=== PATIENT | female | born 1965 | race Caucasian/White ===

== ENCOUNTER 2021-12-07 15:09 | Day surgery (SDC) | payer OTHER ==
[2021-12-07] MEDS ORDERED: Sodium Chloride 0.9(Preservative Free) 10 ML IJ ONE (15:10)
[2021-12-07] MEDS ORDERED: XYLOCAINE-MPF 1% 5ML SDV IJ ONE (15:10)
[2021-12-07] MEDS ORDERED: Decadron 4 MG INJ IV ONE (15:10)
[2021-12-07] MEDS ORDERED: Lactated Ringers 1,000 ML IV ONE (16:33)
--- NOTE | 2021-12-08 07:44 | XRAY ---
Indication: Cervical LOLI. Intraoperative fluoroscopy provided for 26 seconds. 2 digital spot image submitted for interpretation demonstrates posterior needle tip projecting just posterior to cervical thoracic junction. Small amount of contrast injected for needle tip placement. Correlate with intraoperative findings/report.
--- NOTE | 2021-12-08 22:05 | XRAY ---
26 seconds of fluoroscopy was used in surgery for a cervical LOLI.
== END 2021-12-07 17:40 | disposition home or self-care (01) ==
LOC: SDC-PAIN 15:09
PROVIDERS: ATTEND Psychiatry & Neurology Pain Medicine
DX: M54.12 Radiculopathy, cervical region (principal); Z79.899 Other long term (current) drug therapy
CPT/HCPCS: 62321; 72040; 77003; 81025; 82947; J1100; Q9966

== ENCOUNTER 2022-11-15 15:44 | Day surgery (SDC) | payer OTHER ==
[2022-11-15] MEDS ORDERED: Sodium Chloride 0.9(Preservative Free) 10 ML IJ ONE (15:45)
[2022-11-15] MEDS ORDERED: Decadron 4 MG INJ IV ONE (15:45)
[2022-11-15] MEDS ORDERED: LIDOCAINE HCL 1% 50 MG/5 ML VL PF IJ ONE (15:45)
[2022-11-15] MEDS ORDERED: Lactated Ringers 1,000 ML IV ONE (17:54)
--- NOTE | 2022-11-16 08:38 | XRAY ---
Indication: Cervical LOLI. Intraoperative fluoroscopy provided for 36 seconds. 2 digital spot images submitted for interpretation demonstrates posterior needle tip projecting at cervicothoracic junction. Small amount of contrast injected for needle tip placement. Correlate with intraoperative findings/report.
--- NOTE | 2022-11-16 09:09 | XRAY ---
36 seconds of fluoroscopy was used in surgery for a cervical LOLI.
== END 2022-11-15 17:45 | disposition home or self-care (01) ==
LOC: SDC-PAIN 15:44
PROVIDERS: ATTEND Psychiatry & Neurology Pain Medicine
DX: M54.12 Radiculopathy, cervical region (principal); E11.9 Type 2 diabetes mellitus without complications; Z79.899 Other long term (current) drug therapy
CPT/HCPCS: 62321; 72040; 77003; 82947; J1100; J2001; Q9966